=== PATIENT | female | born 1990 | race Caucasian/White ===

== ENCOUNTER 2024-05-29 14:52 | Outpatient (AMB) | payer BC, SELFPAY ==
[2024-05-29 15:01] VITALS: BP 133/81; PULSE 113; RESP 16; TEMP 36.2; O2SAT 99; BMI 29.9
--- NOTE | 2024-05-29 15:01 | AMB.GYNCLNOT ---
Vital Signs 05/29/24 15:01 Height 1.52 m Height Method Stated Weight 69.456 kg Weight Measurement Method Standing Scale BMI 29.9 BP 133/81 H Blood Pressure Source Automatic Cuff Blood Pressure Location Left Upper Arm Position Sitting Respiration 16 Pulse 113 H Pulse Source Monitor Temp 97.2 F Temp Source Oral Pulse Oximetry (%) 99 Oxygen Delivery Method Room Air Allergies/Home Meds Allergies & Medications Allergies No Known Allergies Allergy (Verified 05/29/24 15:04) Medication Reconciliation No Known Home Medications 05/29/24 [History Confirmed 05/29/24] Intake Visit Data Collection New Patient or Established: New Patient (never been to [facility]) Reason for Visit:: Establish care, discuss future . Follow-up on fibroids. Discuss pelvic pain Seen by Clinical Staff ONLY (RN/MA): No Do You Feel Safe at Home: Yes Authorities Contacted: N/A PCP or OBGYN visit in last 3 months: Yes Hx Now: No Are you currently on any form of Control: Yes (Nexplanon) Last menstrual period: 05/10/24 Pain Present Currently: Yes Pain Location: Abdomen Pain Scale Used: Linder-Thomas/Numerical Pain scale:: 0 Smoking Status Smoking Status: Never smoker Orientation & Mobility Specialist history Orientation & Mobility Specialist History Menstrual regularity: regular Flow: normal Monthly: Yes Age at menarche: 12 Menopausal: No Currently sexually active: Yes If not currently sexually active, have you ever been sexually active: No Questionnaires PHQ-9 PHQ-2 Over the last 2 weeks, how often have you been bothered by any of the following problems? 1. Little interest or pleasure in doing things: not at all 2. Feeling down, depressed, or hopeless: not at all Total score: 0 PHQ-9 3. Trouble falling or staying asleep, or sleeping too much: Not at all 4. Feeling tired or having little energy: Not at all 5. Poor appetite or overeating: Not at all 6. Feeling bad about yourself - or that you are a failure or have let yourself or your family down: Not at all 7. Trouble concentrating on things, such as reading the newspaper or watching television: Not at all 8. Moving or speaking so slowly that other people could have noticed? - Or the opposite - being so fidgety or restless that you have been moving around a lot more than usual: not at all 9. Thoughts that you would be better off or of hurting yourself in some way: Not at all Total score: 0 If you checked off any problems, how difficult have these problems made it for you to do your work, take care of things at home, or get along with other people?: not difficult at all Source: Developed by Drs. Juan Damon, Edita Dickinson, Gage Altamirano and colleagues, with an educational dallas from [employer]. 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 Tobacco History Smoking Status: Never smoker Alcohol History Alcohol Intake: Never Domestic Abuse History Do You Feel Safe at Home: Yes Past Medical History Past Medical History Have you ever been diagnosed with any of the following: Neurological Problems Seizures: No Migraine: No Cardiology Problems Cardiac Arrhythmia: No Heart Murmur: No Hypercholesterolemia: No Deep Vein Thrombosis: No Hypertension: No Hypotension: No Respiratory Problems Asthma: No Pulmonary Embolism: No Stomache/Intestinal Problems Gall Bladder Disease: No Gastroesophageal Reflux Disease: No Obesity: No Genital/Urinary Problems Renal Disease: No Kidney Stones: No Reproductive Problems Breast Cancer: No Endometriosis: No Fibroids: Yes (History of ex lap with myomectomy for 17 x 15 cm fibroid) Genital Herpes: No Gonorrhea: No Pelvic Inflammatory Disease: No Polycystic Ovarian Syndrome: No Previous Pregnancies: Yes (History of primary for large fibroid blocking canal) Musculoskeletal Problems Arthritis: No Rheumatoid Arthritis: No Scoliosis: No Fractures: No Head,Eye,Nose,Throat Problems Blind: No Endocrine Problems Diabetes Mellitus Type 2: No Hyperthyroidism: No Hypothyroidism: No Systemic Lupus Erythematosus: No Blood Problems Anemia: No Clotting Problems: No Psychologic Problems Depression: No Anxiety: No Attention Deficit Disorder: No Other Problems Hospitalization: Yes (For , for myomectomy.) Blood Transfusions: No Anesthesia Reactions: No Surgical History Appendectomy: No Bariatric Surgery: No Breast Surgery: No Cholecystectomy: No Additional Surgical History: , exploratory laparotomy with myomectomy. History of Present Illness HPI Narrative Patient is a 34-year-old -0-0-1 status post primary 01/2021 at term secondary to high station ruptured membranes and unable to get her into labor. Patient had a 12 x 5 cm fibroid in the right lower uterine segment in the broad ligament blocking the head. The fibroid continued to grow and she underwent an exploratory laparotomy with myomectomy 09/04/[address] myself [address] Cao in [place]. The pathology revealed a fibroid measuring 18 x 11 x 6.5 cm that was benign and weighed 945 g. She is here reporting some pain it is diffuse is worse when rolling over or reaching for things. She is wondering if this will get worse in . She did have an Nexplanon placed in [place] recently through a walk-in clinic and is going there to get scheduled for pelvic floor physical therapy. She feels tired and worn out. Of note she has a 3-year-old son no at home. Her is a upper caser and has been working extra shifts and is sometimes only home 1 or 2 days a week. Patient works as a administrative and program specialist. She did get over influenza about 2 weeks ago. Review of Systems Review of Systems Narrative Review of Systems: Patient reports fatigue. Achiness in her joints. Pelvic pain as above. No heavy cycles. She is on Nexplanon for contraception. Systems Reviewed: All systems reviewed, normal except as documented Exam General Limitations: no limitations General Appearance: alert, in no apparent distress, cooperative, healthy appearing and well groomed Chest Chest inspection: Present normal inspection and symmetric chest wall rise Card Cardiovascular exam: Present regular rate, normal rhythm and normal heart sounds Extremities Extremities exam: Present normal inspection and full ROM Psych Psychiatric exam: Present normal affect and normal mood Skin Skin exam: Present warm, dry, intact and normal color Assessment & Plan Diagnosis / Problem List (1) History of delivery affecting : Status: Acute Plan: Patient will need repeat scheduled early between 37 to 38 weeks secondary to history of prior and history of myomectomy (2) Uterine fibroid: Status: Acute Qualifiers: Uterine leiomyoma location: unspecified location Qualified Code(s): D25.9 - Leiomyoma of uterus, unspecified Plan: Patient is having pelvic pain. Will check a pelvic ultrasound. (3) Fatigue: Status: Acute Qualifiers: Fatigue type: unspecified Qualified Code(s): R53.83 - Other fatigue Plan: Check lab work including all thyroid levels CBC vitamin B12 ADRIANNA and ESR. Will call the patient with the results. She will follow-up for an annual exam in approximately 3 months. Additional Plan Follow Up: 3 Months Office Procedures OB Clinic LOC & Office Proc's Nursing/Assessment Patient Status: Initial/New Patient OB Clinic Nursing Assessment: BP Monitoring, Medication Reconciliation, Update PMH in EMR and Vital Signs OB Clinic Coordination of Care: Complex Care and Chronic Disease 1-5, Consent,records obtained, informed consent, Education Simp Pt/Fam, Lab and Imaging orders and Staff clarify orders New Patient Charge New Patient Point Assignment: [id number] New Patient Point Charge: SAP BW DEVELOPER Level 3 ([id number])
== END 2024-05-29 15:35 | disposition home or self-care (01) ==
LOC: HODSOBC 14:52
PROVIDERS: Supervising Provider Obstetrics & Gynecology; Visit Provider Obstetrics & Gynecology
DX: O34.10 Maternal care for benign tumor of corpus uteri, unspecified trimester (principal); D25.9 Leiomyoma of uterus, unspecified; O26.819 Pregnancy related exhaustion and fatigue, unspecified trimester; O34.219 Maternal care for unspecified type scar from previous cesarean delivery; Z3A.00 Weeks of gestation of pregnancy not specified
CPT/HCPCS: 99203; G0463

== ENCOUNTER 2024-11-20 15:13 | Outpatient (AMB) | payer BC, SELFPAY ==
[2024-11-20 15:44] VITALS: BP 142/89; PULSE 99; RESP 16; TEMP 36.2; O2SAT 98; BMI 29.9
--- NOTE | 2024-11-20 15:44 | AMB.GYNCLNOT ---
Vital Signs 11/20/24 15:44 Height 1.52 m Height Method Stated Weight 69.116 kg Weight Measurement Method Standing Scale BMI 29.9 BP 142/89 H Blood Pressure Source Automatic Cuff Blood Pressure Location Left Upper Arm Position Sitting Respiration 16 Pulse 99 Pulse Source Monitor Temp 97.2 F Temp Source Oral Pulse Oximetry (%) 98 Oxygen Delivery Method Room Air Allergies/Home Meds Allergies & Medications Allergies No Known Allergies Allergy (Verified 11/20/24 15:47) Medication Reconciliation No Known Home Medications 05/29/24 [History Confirmed 11/20/24] Intake Visit Data Collection New Patient or Established: Established Patient (seen at [facility] within 3 years) Reason for Visit:: Annual exam, discuss recent ultrasound and labs Seen by Clinical Staff ONLY (RN/MA): No Sheet Turner Required: No Do You Feel Safe at Home: Yes Authorities Contacted: N/A PCP or OBGYN visit in last 3 months: Yes Hx Now: No Are you currently on any form of Control: Yes Last menstrual period: 11/02/24 Pain Present Currently: No Pain Scale Used: Linder-Thomas/Numerical Pain scale:: 0 Smoking Status Smoking Status: Never smoker Target Worker history Target Worker History Menstrual regularity: regular Flow: normal Monthly: No Currently sexually active: Yes If not currently sexually active, have you ever been sexually active: No Additional comments: Patient has a Nexplanon in place from a provider in [place] NETWORK PROGRAM MANAGER: Past Medical History Additional Operations/Hospitalizations (year & reason): 01/2001 primary for large fibroid blocking canal 09/03 exploratory laparotomy myomectomy removal of fibroids 17 x 15 cm and weighing almost to 1000 g. Other Relevant History: No significant past medical history Questionnaires Covid-19 Vaccine Questionnaire Has patient been vacinated for Covid-19 Have you been vacinated for Covid-19: Yes PHQ-9 PHQ-2 Over the last 2 weeks, how often have you been bothered by any of the following problems? 1. Little interest or pleasure in doing things: not at all 2. Feeling down, depressed, or hopeless: not at all Total score: 0 PHQ-9 3. Trouble falling or staying asleep, or sleeping too much: Not at all 4. Feeling tired or having little energy: Not at all 5. Poor appetite or overeating: Not at all 6. Feeling bad about yourself - or that you are a failure or have let yourself or your family down: Not at all 7. Trouble concentrating on things, such as reading the newspaper or watching television: Not at all 8. Moving or speaking so slowly that other people could have noticed? - Or the opposite - being so fidgety or restless that you have been moving around a lot more than usual: not at all 9. Thoughts that you would be better off or of hurting yourself in some way: Not at all Total score: 0 If you checked off any problems, how difficult have these problems made it for you to do your work, take care of things at home, or get along with other people?: not difficult at all Source: Developed by Drs. Juan Damon, Edita Dickinson, Gage Altamirano and colleagues, with an educational dallas from [employer]. 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 3-1/2-year-old son Tobacco History Smoking Status: Never smoker Second Hand Smoke Exposure: No Alcohol History Alcohol Intake: Never Domestic Abuse History Do You Feel Safe at Home: Yes History of Present Illness HPI Narrative The patient is a 34-year-old -0-0-1. She used to see me in [place]. She underwent a primary 2020 for failure to descend. We knew she had a fibroid in the uterus however at it was approximately 12 x 5 cm and was blocking the head from descending in the canal. The fibroid continued to grow and she underwent exploratory laparotomy with myself and one of my partners in 2023. A large fibroid about 17 x 15 cm was removed which weighed close to 1000 g. Patient presents today for an annual exam and for follow-up. She was having some pelvic pain and fatigue when I saw her back May 29, 2024. I did order lab work revealing a normal hemoglobin of 12.8, normal hematocrit of 38.2. Her thyroid was normal as was her hemoglobin A1c. I checked an ESR which was normal and an ADRIANNA which were both was normal patient's B12 was normal at 573. She had a recent ultrasound dated 06/28/2024 revealing the uterus to be heterogeneous measuring 7.5 x 4.6 with a 3.2 cm hypoechoic solid mass in the right posterior uterine body . The endometrium was 1 cm, her right ovary was normal and the left ovary was not seen well. No abnormalities were seen on abdominal exam. Review of Systems Review of Systems Narrative Review of Systems: Patient has been going to pelvic floor physical therapy and states her pelvic pain is better. I reviewed normal ultrasound with her. She has some mild bleeding on her Nexplanon but she is happy with this form of contraception. They are unsure whether or not they are going to try for another baby if so will not be this year. No dyspareunia no dysuria no hot flashes or night sweats. No abnormal discharge or foul odor. Exam General Limitations: no limitations General Appearance: alert, in no apparent distress, comfortable, cooperative, healthy appearing and well groomed Chest Chest inspection: Present normal inspection and symmetric chest wall rise Resp Respiratory exam: Present normal lung sounds bilaterally Card Cardiovascular exam: Present regular rate, normal rhythm and normal heart sounds Abdominal Abdominal exam: Present soft and normal bowel sounds External exam: Present normal external exam Speculum exam: Present normal speculum exam Bimanual exam: Present normal bimanual exam Extremities Extremities exam: Present normal inspection and full ROM Psych Psychiatric exam: Present normal affect and normal mood Skin Skin exam: Present warm, dry, intact and normal color Office Procedures OB Clinic LOC & Office Proc's Nursing/Assessment Patient Status: Established Patient OB Clinic Nursing Assessment: Medication Reconciliation, Update PMH in EMR and Vital Signs OB Clinic Coordination of Care: Education Complex Pt/Fam, Consent,records obtained, informed consent, Lab and Imaging orders, Results/Orders obtained and Staff clarify orders Miscellaneous Interventions: Pelvic/Pap Smear Set up Established Patient Charge Established Patient Point Assignment: 105 Established Patient Point Charge: EP Level 3 (80-115) Assessment & Plan Diagnosis / Problem List (1) Uterine fibroid: Status: Acute Qualifiers: Uterine leiomyoma location: unspecified location Qualified Code(s): D25.9 - Leiomyoma of uterus, unspecified Plan: Patient had exploratory laparotomy and a . She has a very small fibroid left today only 3.2 cm. She is worried this will grow in like last time. I told her I am unsure what will happen but usually fibroids to grow a little bit secondary to the large amount of hormones present. Patient will need a repeat . She is not to labor at all. The plan will be to perform a at least 3 weeks early at approximately 37 weeks. Patient at this time is unsure whether the going to try for another baby. She has a Nexplanon in place. (2) Women's annual routine gynecological examination: Status: Acute Plan: Pap with high risk HPV performed breast exam encouraged. Patient to start mammograms at 39 years old. No strong family history of any gynecological cancers. Follow-up in 1 year. CARDIOVASCULAR RADIOLOGIC TECHNOLOGIST: Papsmear Pap Smear Procedure Pre-op diagnosis general: Annual female wellness screening exam Post-op diagnosis procedure note: Same Chaparone in room during procedure?: No Procedure position: lithotomy Speculum inserted, cervix visualized: Yes Cervical appearance: normal Collection method: broom type device Specimen placed in liquid-based cytology medium: Yes Complications: No Patient tolerated procedure well: Yes Follow up pending results: phone call Procedure Notes:: A Pap smear was collected as was cotesting for high risk HPV. The patient has no past history of abnormal Pap smears, colposcopies or cryotherapy of the cervix. Papsmear completed: yes
== END 2024-11-20 17:27 | disposition home or self-care (01) ==
LOC: HODSOBC 15:13
PROVIDERS: Supervising Provider Obstetrics & Gynecology; Visit Provider Obstetrics & Gynecology
DX: Z01.419 Encounter for gynecological examination (general) (routine) without abnormal findings (principal); Z11.51 Encounter for screening for human papillomavirus (HPV); D25.9 Leiomyoma of uterus, unspecified
CPT/HCPCS: 99213; G0463